=== PATIENT | female | born 1995 | race African-American/Black ===

== ENCOUNTER 2024-09-09 14:23 | Emergency (ER) | payer MEDICAID ==
[~2024-09-09] VITALS: Ht 144.8 cm; Wt 39.4 kg
[2024-09-09 15:14] VITALS: BP 129/77; PULSE 115; RESP 19; O2SAT 100
[2024-09-09] MEDS ORDERED: AUG875T PO (16:51)
[2024-09-09] MEDS ORDERED: BENZ100C97 PO (16:51)
[2024-09-09] MEDS ORDERED: ONDA-155 PO (16:51)
[2024-09-09] MEDS ORDERED: METH-1181 PO (16:51)
--- NOTE | 2024-09-09 16:51 | ED.PDOC ---
SOB-HPI HPI Comments 29 year old F presents for URI symptoms x 4 days C/o nasal congestion, chills, intermittent nausea LMP: 09/04/2023 Denies fevers chills night sweats unintentional weight loss Denies persistent chest pain, shortness of breath, leg swelling Denies history of asthma nor any breathing conditions Denies history of pneumonia Denies recent international travel Chief Complaint: Flu like Time Seen by MD: 15:19 Primary Care Provider: tae Reviewed notes: Nurses Notes, Medications, Allergies Information Source: Patient Mode of Arrival: Ambulatory Social History Smoker: Non-Smoker Alcohol: Denies ETOH Use Drugs: Denies Drug Use All Other Systems: Reviewed and Negative (per hpi) Physical Exam General Appearance: No Apparent Distress, Normal HEENT: Normal ENT Inspection, Pharynx Normal, TMs Normal Neck: Full Range of Motion, Non-Tender, Normal, Normal Inspection Respiratory: Chest Non-Tender, Lungs Clear, No Accessory Muscle Use, No Respiratory Distress, Normal Breath Sounds Cardiovascular: No Edema, No JVD, No Murmur, No Gallop, Normal Peripheral Pulses, Regular Rate/Rhythm Breast Exam: Deferred Gastrointestinal: No Organomegaly, Non Tender, No Pulsatile Mass, Normal Bowel Sounds, Soft Genitalia: Deferred Pelvic: Deferred Rectal: Deferred Extremities: No calf tenderness, Normal capillary refill, Normal inspection, Normal range of motion, Non-tender, No pedal edema Musculoskeletal : Apperance: Normal Neurologic: Alert, No Motor Deficits, Normal Affect, Normal Mood, No Sensory Deficits Cerebellar Function: Normal Reflexes: Normal Skin: Dry, Normal Color, Warm Lymphatic: No Adenopathy Was a procedure done? Was a procedure done?: No Differential Dx Differential Diagnosis: Bronchitis, URI X-Ray, Labs, Meds, VS Vital Signs Date Time Temp Pulse Resp B/P (MAP) Pulse Ox O2 Delivery O2 Flow Rate FiO2 09/09/24 15:14 99.2 115 19 129/77 (94) 100 X-Ray, Labs, Meds, VS Comment On presentation, the patient is afebrile and has stable vital signs. The patient is overall well-appearing nontoxic on exam. On physical exam, respirations even and unlabored, clear to auscultation bilaterally. Oxygen stable on room air. Did not have any focal lung findings and therefore chest x-ray was not indicated during this exam Low suspicion of strep pharyngitis given physical exam findings and patient's presenting symptoms No signs of meningismus on exam Overall, the patient is well hydrated and nontoxic. Plan for symptomatic control for fever and pain as needed. The patient was able to tolerate p.o. intake in the ED. at this time, patient is safe for discharge home. The exam findings and plan discussed. We will discharge home with PCP follow up and strict return precautions. Discussed that cough can linger up to 6 weeks after viral URI Supportive care and return precautions discussed Counseled viral infection and explained that antibiotics would not be helpful in resolving the illness sooner. Recommended vitamin C, rest, handwashing, and symptomatic care. Expect 2-week course with possibly of cough lingering up to 6 weeks. Nonpharmacological remedies for fluids has been recommended as well Time of 1ST Reevaluation: 16:19 Reevaluation 1ST: Improved Patient Education/Counseling: Diagnosis, Treatment Family Education/Counseling: Diagnosis, Treatment Departure 1 Departure Time of Disposition: 16:47 Impression: Primary Impression: Viral syndrome Additional Impressions: Muscle spasm Nausea Disposition: HOME / SELF CARE / HOMELESS Condition: Stable e-Prescriptions Amoxicillin & Pot Clavulanate (AUGMENTIN TABLET) 875 Mg Tb 875 MG PO BID for 7 Days, #14 TAB 0 Refills Prov: JANELL PRIETO NP 09/09/24 Methocarbamol (Methocarbamol) 500 Mg Tab 500 MG PO Q8HP PRN for 10 Days, #30 TAB 0 Refills Prov: JANELL PRIETO NP 09/09/24 Ondansetron HCl (Ondansetron) 4 Mg Tab 4 MG PO Q8HP PRN for 2 Days, #6 TAB 0 Refills Prov: JANELL PRIETO NP 09/09/24 Benzonatate (Benzonatate) 100 Mg Cap 1 CAP PO TID for 10 Days, #30 CAP 0 Refills Prov: JANELL PRIETO NP 09/09/24 Critical Care Note Critical Care Time?: No Stability Stability form required: No Heart Score Heart Score: Heart Score Response (Comments) Value History N/A 0 EKG N/A 0 Age N/A 0 Risk Factors N/A 0 Troponin N/A 0 Total 0 JANELL PRIETO NP Sep 09, 2024 16:51
== END 2024-09-09 16:56 | disposition home or self-care (01) ==
LOC: ER 14:23
DX: B34.9 Viral infection, unspecified (principal); M62.838 Other muscle spasm; R11.0 Nausea

== ENCOUNTER 2025-07-11 19:04 | Inpatient (IN) | payer MEDICAID ==
[~2025-07-11] VITALS: Ht 30.5 cm; Wt 41.8 kg
[~2025-07-11 19:04] MED LIST: AUG875T PO; BENZ100C97 PO; METH-1181 PO; ONDA-155 PO
--- NOTE | 2025-07-11 19:15 | ECG ---
[facility] Test Date: 2025-07-11 Test Time: 19:13:33 Pat Name: JANAE MYLES Department: Room: [address] [place] [address] Gender: F Audio Operator: RODRÍGUEZ : 1995 Requested By: RHONDA CANTOR Order Number: [id number] Reading MD: Bill Hardy Measurements Intervals [place] Rate: 70 P: 11 RI: 149 QRS: 40 QRSD: 95 T: 49 QT: 392 QTc: 423 Interpretive Statements Sinus rhythm RSR' in V1 or V2, probably normal variant ST elevation suggests acute pericarditis Electronically Signed On 07-16-2025 17:44:38 PST by Bill Hardy Please click the below link to view image of tracing.
[2025-07-11 19:30] LABS: Hematocrit 30.8 % (36.0-46.0); Hemoglobin 9.9 g/dL (12.2-16.2); Mean Corpuscular Hemoglobin 23.7 pg (28.0-32.0); Mean Corpuscular Volume 73.8 fL (80.0-100.0); Nucleated Red Blood Cells % 0.0 %
[2025-07-11 19:42] LABS: Chloride 106 mmol/L (98-107); Sodium 138 mmol/L (136-145)
[2025-07-11 19:43] LABS: Anion Gap 5 (5-15); Carbon Dioxide 27 mmol/L (20-31)
[2025-07-11 19:44] LABS: Calcium 9.0 mg/dL (8.7-10.4); Potassium 3.3 mmol/L (3.5-5.1)
[2025-07-11 19:49] LABS: BUN/Creatinine Ratio 10.2 (10.0-20.0); Glucose 83 mg/dL (74-106)
[2025-07-11 19:50] LABS: Blood Urea Nitrogen 6 mg/dL (9-23)
--- NOTE | 2025-07-11 21:19 | ED.PDOC ---
HPI Comments 30-year-old female who came to ER for chest pains. Patient denies any medical problems. States for the past 3 days she has been having intermittent episodes sternal chest pains, pressure, radiating to her left lower rib cage. Denies any shortness of breath nausea or vomiting. The pressure with a arrival was 116/72 mm Hg Chief Complaint: Chest Pain Time Seen by MD: 20:15 Primary Care Provider: tae Allergies: Coded Allergies: NO KNOWN ALLERGIES (Unverified , 09/09/24) Home Meds Active Scripts Amoxicillin & Pot Clavulanate (AUGMENTIN TABLET) 875 Mg Tb, 875 MG PO BID for 7 Days, #14 TAB 0 Refills Prov:JANELL PRIETO BRAIDED BAND ASSEMBLER 09/09/24 Methocarbamol (Methocarbamol) 500 Mg Tab, 500 MG PO Q8HP PRN for 10 Days, #30 TAB 0 Refills Prov:JANELL PRIETO BRAIDED BAND ASSEMBLER 09/09/24 Ondansetron HCl (Ondansetron) 4 Mg Tab, 4 MG PO Q8HP PRN for 2 Days, #6 TAB 0 Refills Prov:JANELL PRIETO BRAIDED BAND ASSEMBLER 09/09/24 Benzonatate (Benzonatate) 100 Mg Cap, 1 CAP PO TID for 10 Days, #30 CAP 0 Refills Prov:JANELL PRIETO BRAIDED BAND ASSEMBLER 09/09/24 Mode of Arrival: Ambulatory Past Medical History PAST MEDICAL HISTORY: Denies Surgical History: Denies all surgeries ACID FILLER History: Denies all ACID FILLER Hx Family History Family History: Reviewed,noncontributory to illness Social History Smoker: Non-Smoker Alcohol: Denies ETOH Use Drugs: Denies Drug Use Lives In: Home Constitutional: denies: chills, diaphoresis, fatigue, fever, malaise, sweats, weakness, others EENTM: denies: blurred vision, double vision, ear bleeding, ear discharge, ear drainage, ear pain, ear ringing, eye pain, eye redness, hearing loss, mouth pain, mouth swelling, nasal discharge, nose bleeding, nose congestion, nose pain, photophobia, tearing, throat pain, throat swelling, voice changes, others Respiratory: denies: cough, hemoptysis, orthopnea, SOB at rest, shortness of breath, SOB with excertion, stridor, wheezing, others Cardiovascular: reports: chest pain; denies: dizzy spells, diaphoresis, Dyspnea on exertion, edema, irregular heart beat, left arm pain, lightheadedness, palp itations, PND, syncope, others Gastrointestinal: denies: abdomen distended, abdominal pain, blood streaked bowels, constipated, diarrhea, dysphagia, difficulty swallowing, hematemesis, melena, nausea, poor appetite, poor fluid intake, rectal bleeding, rectal pain, vomiting, others Genitourinary: denies: abnormal vagina bleeding, burning, dyspareunia, dysuria, flank pain, frequency, hematuria, incontinence, pain, , vagina discharge, urgency, others Neurological: denies: dizziness, fainting, headache, left sided numbness, left sided weakness, numbness, paresthesia, pre-existing deficit, right sided numbness, right sided weakness, seizure, speech problems, tingling, tremors, weakness, others Musculoskeletal: denies: back pain, gout, joint pain, joint swelling, muscle pain, muscle stiffness, neck pain, others Integumetry: denies: bruises, change in color, change in hair/nails, dryness, laceration, lesions, lumps, rash, wounds, others Allergic/Immunocompromised: denies: Difficulty Healing, Frequent Infections, Hives, Itching, others Hematologic/Lymphatic: denies: anemia, blood clots, easy bleeding, easy br uising, swollen glands, others Endocrine: denies: excessive hunger, excessive sweating, excessive thirst, excessive urination, flushing, intolerance to cold, intolerance to heat, unexplained weight gain, unexplained weight loss, others Psychiatric: denies: anxiety, bipolar disorder, depression, hopeless, panic disorder, schizophrenia, sleepless, suicidal, others Physical Exam General Appearance: No Apparent Distress, Normal HEENT: Normal ENT Inspection, Pharynx Normal, TMs Normal Neck: Full Range of Motion, Non-Tender, Normal, Normal Inspection Respiratory: Chest Non-Tender, Lungs Clear, No Accessory Muscle Use, No R espiratory Distress, Normal Breath Sounds Cardiovascular: No Edema, No JVD, No Murmur, No Gallop, Normal Peripheral Pulses, Regular Rate/Rhythm Breast Exam: Deferred Gastrointestinal: No Organomegaly, Non Tender, No Pulsatile Mass, Normal Bowel Sounds, Soft Genitalia: Deferred Pelvic: Deferred Rectal: Deferred Extremities: No calf tenderness, Normal capillary refill, Normal inspection, Normal range of motion, Non-tender, No pedal edema Musculoskeletal : Apperance: Normal Neurologic: Alert, part time flexible clerk II-XII nml as Tested, No Motor Deficits, Normal Affect, Normal Mood, No Sensory Deficits Cerebellar Function: Normal Reflexes: Normal Skin: Dry, Normal Color, Warm Lymphatic: No Adenopathy EKG EKG : Pulse Rate (adult): 72 Cardiac Rhythm: NSR Comments ST elevation the consider acute pericarditis Was a procedure done? Was a procedure done?: No CP Differential Dx Differential Diagnosis: A-fib, A-Flutter, Electrolyte Disorder, Heart Failure, MAT, [place], Pulmonary Embolus, Renal Failure, V-Fib, V-Tach, Other Differential Diagnosis: Angina, Chest Wall Pain, Costochondritis, Esophageal reflux/spasm, Gastritis, Myocardial Infarction X-Ray, Labs, Meds, VS Vital Signs Date Time Temp Pulse Resp B/P (MAP) Pulse Ox O2 Delivery O2 Flow Rate FiO2 07/11/25 21:19 72 07/11/25 20:11 69 07/11/25 19:13 70 07/11/25 19:10 98.1 72 18 116/72 99 98.1 Lab Test 07/11/25 20:28 07/11/25 19:18 Range/Units Troponin I High Sensitivity < 3 L < 3 L </=34 ng/L White Blood Count 8.0 4.4-10.8 10^3/uL Red Blood Count 4.18 4.0-5.20 10^6/uL Hemoglobin 9.9 L 12.2-16.2 g/dL Hematocrit 30.8 L 36.0-46.0 % Mean Corpuscular Volume 73.8 L 80.0-100.0 fL Mean Corpuscular Hemoglobin 23.7 L 28.0-32.0 pg Mean Corpuscular Hemoglobin Concent 32.1 32.0-36.0 g/dL Red Cell Distribution Width 15.4 H 11.8-14.3 % Platelet Count 261 140-450 10^3/uL Mean Platelet Volume 6.5 L 6.9-10.8 fL Neutrophils (%) (Auto) 69.8 37.0-80.0 % Lymphocytes (%) (Auto) 20.7 10.0-50.0 % Monocytes (%) (Auto) 8.0 0.0-12.0 % Eosinophils (%) (Auto) 1.3 0.0-7.0 % Basophils (%) (Auto) 0.2 0.0-2.0 % Neutrophils # (Auto) 5.6 1.6-8.6 10 ^3/uL Lymphocytes # (Auto) 1.7 0.4-5.4 10 ^3/uL Monocytes # (Auto) 0.6 0-1.3 10 ^3/uL Eosinophils # (Auto) 0.1 0-0.8 10 ^3/uL Basophils # (Auto) 0 0-0.2 10 ^3/uL Nucleated Red Blood Cells 0.0 % Sodium Level 138 136-145 mmol/L Potassium Level 3.3 L 3.5-5.1 mmol/L Chloride Level 106 98-107 mmol/L Carbon Dioxide Level 27 20-31 mmol/L Anion Gap 5 5-15 Blood Urea Nitrogen 6 L 9-23 mg/dL Creatinine 0.59 0.550-1.02 mg/dL Glomerular Filtration Rate Calc 124 >90 mL/min BUN/Creatinine Ratio 10.2 10.0-20.0 Serum Glucose 83 74-106 mg/dL Calcium Level 9.0 8.7-10.4 mg/dL Time of 1ST Reevaluation: 21:16 Reevaluation 1ST: Unchanged Patient Education/Counseling: Diagnosis, Treatment Family Education/Counseling: No Family Present SEPSIS Sepsis Screen Date sepsis recognized/suspect: Jul 11, 2025 Time Sepsis recognized/suspect: 1910 Recent Procedure: No On Antibiotic Therapy: No Respiratory Rate >20: No Heart Rate >90: No Temp<36 C (96.8 F) or >38.3 C: No SBP <90 or MAP <65 mmHG: No New Acute Mental Status Change: No Is the patient on CPAP, BIPAP,: No Physician Orders Electrocardigram (07/11/25 20:09) Electrocardigram (07/11/25 22:09) Urinalysis (07/11/25 20:15) Test, Urine (07/11/25 20:15) Chest Xray 1 View (07/11/25 21:40) Vital Signs Date Time Temp Pulse Resp B/P (MAP) Pulse Ox O2 Delivery O2 Flow Rate FiO2 07/11/25 21:19 72 07/11/25 20:11 69 07/11/25 19:13 70 07/11/25 19:10 98.1 72 18 116/72 99 98.1 Laboratory Tests Test 07/11/25 19:18 White Blood Count 8.0 10^3/uL (4.4-10.8) Departure 1 Departure Time of Disposition: 21:41 Impression: Primary Impression: Chest pain Additional Impression: Acute coronary syndrome Disposition: ADMITTED INPATIENT Admit to: Tele Condition: Guarded Comments Young 30-year-old female with suspicious chest pain. Her EKG shows some ST and elevation inferiorly and laterally that may represent J-point elevation. It was reviewed by economic specialist Dr. Hazel who recommends medical workup and does not think the patient needs ago to the labor relations supervisor immediately. Initial troponin is normal. Patient given aspirin. Patient will need to be admitted for supportive care and further workup Critical Care Note Critical Care Time?: Yes (35 min-critical care time only) Critical care comment: Total critical care time: Approximately 36 minutes Due to a high probability of clinically significant, life threatening deterioration, the patient required my highest level of preparedness to intervene emergently and I personally spent this critical care time directly and personally managing the patient. This critical care time included obtaining a history; examining the patient; pulse oximetry; ordering and review of studies; arranging urgent treatment with development of a management plan; evaluation of patient's response to treatment; frequent reassessment; and, discussions with other providers. This critical care time was performed to assess and manage the high probability of imminent, life-threatening deterioration that could result in multi-organ failure. It was exclusive of separately billable procedures and treating other patients. Stability Stability form required: No Heart Score Heart Score: Heart Score Response (Comments) Value History Highly Suspicious [address]-Deviation 2 Age <45 0 Risk Factors No known risk factors 0 Troponin Normal limit 0 Total 4 I personally scribed for RHONDA CANTOR MD ([email or web address]) on 07/11/25 at 21:19. Electronically submitted by Jeremias Rodarte ([email or web address]). RHONDA CANTOR MD Jul 11, 2025 21:19
[2025-07-11] MEDS: ONDANSETRON HCL 4 MG/2 ML VIAL IV ONE (21:50)
[2025-07-11] MEDS: MORPHINE SULFATE 4 MG/ML SYR/VIAL IV ONE (21:50)
[2025-07-12] VITALS (7 sets, daily range): BP systolic 102–120; BP diastolic 34–68; PULSE 58–75; RESP 12–18; TEMP 98–98.3; O2SAT 99–100
--- NOTE | 2025-07-12 00:55 | DVH ---
CHEST RADIOGRAPH INDICATION: chest pain TECHNIQUE: Single frontal view of the chest was obtained COMPARISON: None FINDINGS/IMPRESSION: The lungs are clear. The cardiomediastinal silhouette is unremarkable. No pleural effusion or pneumothorax. Incompletely assessed thoracolumbar fusion hardware.
[2025-07-12] MEDS ORDERED: ONDANSETRON HCL 4 MG/2 ML VIAL IV PRN (02:30)
[2025-07-12] MEDS ORDERED: NITROGLYCERIN 0.4 MG SL TAB SL PRN (02:30)
[2025-07-12] MEDS ORDERED: MORPHINE SULFATE INJ 2 MG/ml SYRG IV PRN (02:30)
[2025-07-12 03:47] LABS: Albumin 4.8 g/dL (3.2-4.8); Alkaline Phosphatase 60 U/L (46-116); Bilirubin, Direct 0.2 mg/dL (<0.3); Bilirubin, Total 0.5 mg/dL (0.2-1.0); Total Protein 7.5 g/dL (5.7-8.2)
[2025-07-12 03:59] LABS: Alanine Aminotransferase < 9 U/L (7-40)
[2025-07-12 04:46] LABS: Urine Protein, UAD Negative (Negative)
[2025-07-12] MEDS: POTASSIUM CHL 20 Meq TABLET PO ONE (04:51)
[2025-07-12] MEDS: ATORVASTATIN 20 MG TAB PO ONE (04:52)
[2025-07-12] MEDS: PANTOPRAZOLE 40 MG/10 ML VIAL INJ IV ONE (04:52)
[2025-07-12] MEDS: IBUPROFEN 400 MG TAB PO PRN (08:14)
[2025-07-12 09:10] LABS: Potassium 3.9 mmol/L (3.5-5.1); Sodium 139 mmol/L (136-145)
[2025-07-12 09:11] LABS: Anion Gap 6 (5-15); Calcium 9.0 mg/dL (8.7-10.4); Carbon Dioxide 23 mmol/L (20-31); Chloride 110 mmol/L (98-107)
[2025-07-12 09:16] LABS: BUN/Creatinine Ratio 7.7 (10.0-20.0); Glucose 82 mg/dL (74-106); Triglycerides 68 mg/dL (< 150)
[2025-07-12 09:18] LABS: Blood Urea Nitrogen 5 mg/dL (9-23); Cholesterol 117 mg/dL (< 200); HDL Cholesterol 41 mg/dL (40-59)
--- NOTE | 2025-07-12 11:13 | DVHINCON2 ---
Date Seen: Jul 12, [address] Quevedo Reason for Consultation Chest pain History of Present Illness A 30-year-old female with a history of scoliosis s/p back surgery presents with chest pain for the past five days. Pain is described as sharp/pressure-like in the mid-chest, worsened by deep inspiration and laying on her side, and poor Karen relieved when sitting up. Symptoms are associated with mild dizziness and nausea. Initial 12 lead ECG in the ED demonstrated ST elevation in the inferior and lateral leads, reviewed by Cardiology (Dr. Hazel) who recommended medical workup. Serial troponins have remained negative, chest x-ray is normal, ESR and CRP are normal. Repeat EKG this morning again shows persistent ST elevation in multiple leads. Patient reports a similar episode three years ago that improved with pain medication. She admits to marijuana use, denies tobacco or alcohol use. Family history significant for breast cancer and asthma on her maternal side. Past Medical History As stated in HPI Past Surgical History Back surgery Family History As stated in HPI Social History As stated in HPI Allergies: Coded Allergies: NO KNOWN ALLERGIES (Unverified , 09/09/24) Home Meds Active Scripts Amoxicillin & Pot Clavulanate (AUGMENTIN TABLET) 875 Mg Tb, 875 MG PO BID for 7 Days, #14 TAB 0 Refills Prov:JANELL PRIETO NP 09/09/24 Methocarbamol (Methocarbamol) 500 Mg Tab, 500 MG PO Q8HP PRN for 10 Days, #30 TAB 0 Refills Prov:JANELL PRIETO NP 09/09/24 Ondansetron HCl (Ondansetron) 4 Mg Tab, 4 MG PO Q8HP PRN for 2 Days, #6 TAB 0 Refills Prov:JANELL PRIETO PHYSICAL METALLURGIST 09/09/24 Benzonatate (Benzonatate) 100 Mg Cap, 1 CAP PO TID for 10 Days, #30 CAP 0 Refills Prov:JANELL PRIETO NP 09/09/24 Current Medications Current Medications Medications (Trade) Dose Ordered Sig/Enrique Route PRN Reason Start Time Stop Time Status Last Admin Nitroglycerin (Ntrostat Sublingual) 0.4 mg Q5MINP PRN SL FOR CHEST PAIN 07/12/25 02:30 Morphine Sulfate 2 mg Q30M PRN IV FOR CHEST PAIN 07/12/25 02:30 Aspirin (Ecotrin Enteric Coated Tablet) 81 mg DAILY PO 07/12/25 10:00 Ondansetron HCl (Zofran) 4 mg Q6HPRN PRN IV NAUSEA / VOMITING 07/12/25 02:30 Atorvastatin Calcium (Lipitor) 80 mg HS PO 07/12/25 22:00 07/12/25 06:51 DC Pantoprazole Sodium (Protonix) 40 mg DAILY IV 07/13/25 10:00 Atorvastatin Calcium (Lipitor) 40 mg HS PO 07/12/25 22:00 Ibuprofen (Motrin Tablet) 400 mg Q6HP PRN PO MODERATE PAIN (4-6 PAIN SCALE) 07/12/25 06:45 07/12/25 08:14 Vital Signs Vital Signs Date Time Temp Pulse Resp B/P (MAP) Pulse Ox O2 Delivery O2 Flow Rate FiO2 07/12/25 08:00 Room Air* 0 21 07/12/25 05:22 69 16 99 07/12/25 05:22 98.1 114/56 (75) 98.1 Labs/Diagnostic Data Labs Test 07/12/25 08:00 07/12/25 00:00 07/11/25 20:28 07/11/25 19:18 Range/Units Sodium Level 139 136-145 mmol/L Potassium Level 3.9 3.5-5.1 mmol/L Chloride Level 110 H 98-107 mmol/L Carbon Dioxide Level 23 20-31 mmol/L Anion Gap 6 5-15 Blood Urea Nitrogen 5 L 9-23 mg/dL Creatinine 0.65 0.550-1.02 mg/dL Glomerular Filtration Rate Calc 121 >90 mL/min BUN/Creatinine Ratio 7.7 L 10.0-20.0 Serum Glucose 82 74-106 mg/dL Calcium Level 9.0 8.7-10.4 mg/dL Troponin I High Sensitivity < 3 L </=34 ng/L Triglycerides Level 68 < 150 mg/dL Cholesterol Level 117 < 200 mg/dL LDL Cholesterol 67 < 100 mg/dL HDL Cholesterol 41 40-59 mg/dL Urine Color Light-yellow Yellow Urine Clarity Turbid H Clear Urine pH 6.0 5.0-9.0 Urine Specific [place] 1.015 1.001-1.035 Urine Protein Negative Negative Urine Ketones 1+ H Negative Urine Blood 3+ H Negative /uL Urine Nitrite Negative Negative Urine Bilirubin Negative Negative Urine Urobilinogen Normal Negative mg/dL Urine Leukocyte Esterase Trace Negative /uL Urine RBC 3 0 - 4 /hpf Urine Microscopic WBC 2 0-5 /HPF Urine Squamous Epithelial Cells Few <5 /hpf Urine Renal Epithelial Cells Few None Seen /hpf Urine Bacteria None seen None Seen /hpf Urine Mucus Few None Seen Urine Glucose Normal Normal mg/dL Urine Test Negative Negative Total Bilirubin 0.5 0.2-1.0 mg/dL Direct Bilirubin 0.2 <0.3 mg/dL Aspartate Amino Transferase (AST) 11 L 13-40 U/L Alanine Aminotransferase (ALT) < 9 7-40 U/L Alkaline Phosphatase 60 46-116 U/L C-Reactive Protein High Sensitivity < 0.02 <1.0 mg/dL Total Protein 7.5 5.7-8.2 g/dL Albumin 4.8 3.2-4.8 g/dL Beta HCG, Quantitative 0.0 L 1.5-4.2 mIU/mL White Blood Count 8.0 4.4-10.8 10^3/uL Red Blood Count 4.18 4.0-5.20 10^6/uL Hemoglobin 9.9 L 12.2-16.2 g/dL Hematocrit 30.8 L 36.0-46.0 % Mean Corpuscular Volume 73.8 L 80.0-100.0 fL Mean Corpuscular Hemoglobin 23.7 L 28.0-32.0 pg Mean Corpuscular Hemoglobin Concent 32.1 32.0-36.0 g/dL Red Cell Distribution Width 15.4 H 11.8-14.3 % Platelet Count 261 140-450 10^3/uL Mean Platelet Volume 6.5 L 6.9-10.8 fL Neutrophils (%) (Auto) 69.8 37.0-80.0 % Lymphocytes (%) (Auto) 20.7 10.0-50.0 % Monocytes (%) (Auto) 8.0 0.0-12.0 % Eosinophils (%) (Auto) 1.3 0.0-7.0 % Basophils (%) (Auto) 0.2 0.0-2.0 % Neutrophils # (Auto) 5.6 1.6-8.6 10 ^3/uL Lymphocytes # (Auto) 1.7 0.4-5.4 10 ^3/uL Monocytes # (Auto) 0.6 0-1.3 10 ^3/uL Eosinophils # (Auto) 0.1 0-0.8 10 ^3/uL Basophils # (Auto) 0 0-0.2 10 ^3/uL Nucleated Red Blood Cells 0.0 % PROCEDURE(s): CXR1 - CHEST XRAY 1 VIEW REASON: chest pain ORDER NUMBER(s): [id number], ACCESSION NUMBER(s): [id number] CHEST RADIOGRAPH INDICATION: chest pain TECHNIQUE: Single frontal view of the chest was obtained COMPARISON: None FINDINGS/IMPRESSION: The lungs are clear. The cardiomediastinal silhouette is unremarkable. No pleural effusion or pneumothorax. Incompletely assessed thoracolumbar fusion hardware. Assessment Chest pain likely noncardiac, low probability ACS given age, negative biomarkers, and nonexertional nature and pain 12-lead EKG with ST-elevation on multiple leads and negative troponins Possible acute pericarditis versus early repolarization versus muscular pain versus myocarditis Active marijuana use History of scoliosis Plan/Recommendation (Dr. Hazel ): * Obtain echocardiogram to evaluate for effusion, wall motion abnormality, or structural heart disease * NSAIDs for pain control * Continue * Telemetry anterior clinically state repeat EKG if symptoms change or prior to discharge * Advised to avoid strenuous activity until symptoms improve * Marijuana cessation counseled If echo normal and symptoms improved with NSAIDs, likely noncardiac/musculoskeletal chest pain or benign repolarization. This medical document was created using an electronic medical record system with voice recognition software and computerized dictation system. Although this document has been carefully reviewed, there might still be some phonetic and typographical errors. Occasional wrong-word or ``sound-alike substitutions may have occurred due to the inherent limitations of voice recognition software. These areas are purely typographical due to imperfections of the software programs and do not reflect any compromise in the patient's medical care. Please read the chart carefully and recognize, using context, where these substitutions have occurred. Plan discussed with: Patient Plan discussed with: Patient, Other (RN) NYHA Physical activity limitations: NA Date of Service: Jul 12, 2025 Billing Provider: EVAN HAZEL MD Cardiology Common Codes: CONSULT ONLY Cardiology Consultation Codes: [id number] CONSULT <45MIN SUSAN MURILLO ALMOND HULLER Jul 12, 2025 11:13
[2025-07-12] MEDS: ASPirin-EC 81 mg tab PO SCH (11:15)
[2025-07-12] MEDS: HYDROmorphone HCL 2 MG/ML VL/or syr IV ONE (11:20)
[2025-07-12] MEDS: IBUPROFEN 800 MG TAB PO ONE (12:00)
--- NOTE | 2025-07-12 16:43 | DVHPN2 ---
Subjective Patient continues to have intermittent chest pain Reviewed: Care Plan, H&P, Labs, Medications Changes from previous H/P or p: No Changes General: Per HPI Objective Vitals Vital Signs Date Time Temp Pulse Resp B/P (MAP) Pulse Ox O2 Delivery O2 Flow Rate FiO2 07/12/25 11:20 75 17 102/34 07/12/25 08:00 Room Air* 0 21 07/12/25 05:22 99 07/12/25 05:22 98.1 98.1 General Appearance: Alert, Oriented X3, Cooperative, No acute distress HEENT: Atraumatic, PERRLA Lungs: Clear to auscultation, Normal air movement Cardiovascular: Normal S1, Normal S2 Abdomen: Normal bowel sounds, Soft, No tenderness, No hepatospenomegaly, No masses Genitourinary: No Apparent Abnormalities Musculoskeletal: Normal sensory function, Normal motor function Extremities: No clubbing, No cyanosis, No edema, Normal pulses, No tenderness/swelling Neuro: Normal gait, Normal speech Skin: Dry, Intact Psych/Mental Status: Mental status NL, Mood NL Medications Current Medications Medications Dose Ordered Sig/Enrique Route Start Time Stop Time Status Last Admin Dose Admin Nitroglycerin 0.4 mg Q5MINP PRN SL 07/12/25 02:30 Morphine Sulfate 2 mg Q30M PRN IV 07/12/25 02:30 Aspirin 81 mg DAILY PO 07/12/25 10:00 07/12/25 11:15 81 MG Ondansetron HCl 4 mg Q6HPRN PRN IV 07/12/25 02:30 Pantoprazole Sodium 40 mg DAILY IV 07/13/25 10:00 Atorvastatin Calcium 40 mg HS PO 07/12/25 22:00 Ibuprofen 400 mg Q6HP PRN PO 07/12/25 06:45 Hold 07/12/25 08:14 400 MG Ibuprofen 800 mg TID PO 07/12/25 22:00 Hydromorphone HCl 0.25 mg Q4HPRN PRN IV 07/12/25 15:30 Laboratory Results Laboratory Tests 07/11/25 19:18 07/12/25 08:00 Chemistry Test 07/11/25 19:18 07/11/25 20:28 07/12/25 08:00 Calcium Level 9.0 mg/dL (8.7-10.4) 9.0 mg/dL (8.7-10.4) Albumin 4.8 g/dL (3.2-4.8) Total Protein 7.5 g/dL (5.7-8.2) Lipid panel Test 07/12/25 08:00 Cholesterol Level 117 mg/dL (< 200) HDL Cholesterol 41 mg/dL (40-59) Triglycerides Level 68 mg/dL (< 150) LFT Test 07/11/25 20:28 Alanine Aminotransferase (ALT) < 9 U/L (7-40) Alkaline Phosphatase 60 U/L (46-116) Aspartate Amino Transferase (AST) 11 U/L (13-40) L Direct Bilirubin 0.2 mg/dL (<0.3) Total Bilirubin 0.5 mg/dL (0.2-1.0) Urinalysis Test 07/12/25 00:00 Urine Color Light-yellow (Yellow) Urine Clarity Turbid (Clear) H Urine pH 6.0 (5.0-9.0) Urine Specific [place] 1.015 (1.001-1.035) Urine Protein Negative (Negative) Urine Ketones 1+ (Negative) H Urine Blood 3+ /uL (Negative) H Urine Nitrite Negative (Negative) Urine Bilirubin Negative (Negative) Urine Urobilinogen Normal mg/dL (Negative) Urine Leukocyte Esterase Trace /uL (Negative) Urine RBC 3 /hpf (0 - 4) Urine Microscopic WBC 2 /HPF (0-5) Urine Squamous Epithelial Cells Few /hpf (<5) Urine Renal Epithelial Cells Few /hpf (None Seen) Urine Bacteria None seen /hpf (None Seen) Urine Mucus Few (None Seen) Urine Glucose Normal mg/dL (Normal) Urine Test Negative (Negative) Labs and/or images reviewed: Labs reviewed by me, Image(s) reviewed by me Assessment/Plan Assessment/Plan Impression: -chest pain, probable pericarditis -microcytic anemia Plan: -cardiology consultation: Recommendations reviewed -echocardiogram, pending -start ibuprofen 800 mg p.o. t.i.d. -reassess for discharge in a.m. after echocardiogram has been obtained. Total time spent with patient discussing and formulating plan of care: 35 minutes. This medical document was created using an electronic medical record system with [employer] system. Although this document has been carefully reviewed, there may still be some phonetic and typographical errors. These areas are purely typographical due to imperfections of the software programs, and do not reflect any compromise in the patient's medical care. Plan discussed with: Patient, Other (RN) My Orders Orders - ZOYA ACOSTA NP Procedure Category Date Status Time Consult Care CONS 07/12/25 Verified Coordinator Date of Service: Jul 12, 2025 Billing Provider: ZOYA ACOSTA NP Common Visit Codes: [id number] INP/OBS CARE(HIGH) ZOYA ACOSTA NP Jul 12, 2025 16:43
--- NOTE | 2025-07-12 16:44 | DVHSR ---
APPROVED REPORT EXAM: Two-dimensional and M-mode echocardiogram with Doppler and color Doppler. Blood Pressure: 114/56 mmHg INDICATION Chest pain, ?pericardial effusion RISK FACTORS Height: , Weight: 92 DIMENSIONS LVDd 3.4 (3.8-5.7cm) LA (2D) 3.5 (1.9-4.0cm) Aortic Root 2.8 (2.0-3.7cm) LVDs 2.2 (2.5-4.0cm) LA (MM) (1.9-4.0cm) Aortic Cusp Exc 1.9 (1.5-2.0cm) EF (%) 65.0 (55-70%) Rt. Atrium 3.6 (1.9-4.0cm) Asc. Aorta cm IVSd 0.8 (0.7-1.1cm) RV (D) 3.5 (1.8-2.4cm) PWd 0.8 (0.7-1.1cm) Mitral Valve Mitral Mitral Stenosis E wave 1.35m/s MV Mean GR. mmHg A wave 0.98m/s MV Peak GR. mmHg E/A ratio 1.4 2D MVA cm2 DECEL Time 268ms PRESS 1/2 Time ms Aortic Valve Aortic Valve Aortic Stenosis V1 1.02m/s AO Mean GR. 3mmHg V2 1.31m/s AO Peak GR. 7mmHg LVOT Diameter 1.7 (1.8-2.4cm) Doppler OMAR 1.77cm2 Pulmonic Valve V2 1.33m/s Tricuspid Valve TR Velocity 2.32m/s RVSP 24mmHg Other Information Technically limited study due to body habitus. 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
--- NOTE | 2025-07-12 18:11 | DVHHPRES ---
History of Present Illness Resident Creating Document: JAVIER MACE RESIDENT History of Present Illness A 30-year-old female with a history of scoliosis s/p back surgery presents with chest pain for the past five days. Pain is described as sharp/pressure-like in the mid-chest, worsened by deep inspiration and laying on her side, and poor Karen relieved when sitting up. Symptoms are associated with mild dizziness and nausea. Initial 12 lead ECG in the ED demonstrated ST elevation in the inferior and lateral leads, reviewed by Cardiology (Dr. Hazel) who recommended medical workup. Serial troponins have remained negative, chest x-ray is normal, ESR and CRP are normal. Repeat EKG this morning again shows persistent ST elevation in multiple leads. Patient reports a similar episode three years ago that improved with pain medication. She admits to marijuana use, denies tobacco or alcohol use. Family history significant for breast cancer and asthma on her maternal side. Review of Systems Review of Systems chest pain improved while in the hospital Allergies: Coded Allergies: NO KNOWN ALLERGIES (Unverified , 09/09/24) Medications Current Medications Medications Dose Ordered Sig/Enrique Route Start Time Stop Time Status Last Admin Dose Admin Nitroglycerin 0.4 mg Q5MINP PRN SL 07/12/25 02:30 Morphine Sulfate 2 mg Q30M PRN IV 07/12/25 02:30 Aspirin 81 mg DAILY PO 07/12/25 10:00 07/12/25 11:15 81 MG Ondansetron HCl 4 mg Q6HPRN PRN IV 07/12/25 02:30 Pantoprazole Sodium 40 mg DAILY IV 07/13/25 10:00 Atorvastatin Calcium 40 mg HS PO 07/12/25 22:00 Ibuprofen 400 mg Q6HP PRN PO 07/12/25 06:45 Hold 07/12/25 08:14 400 MG Ibuprofen 800 mg TID PO 07/12/25 22:00 Hydromorphone HCl 0.25 mg Q4HPRN PRN IV 07/12/25 15:30 Exam Vital Signs Vital Signs Date Time Temp Pulse Resp B/P (MAP) Pulse Ox O2 Delivery O2 Flow Rate FiO2 07/12/25 11:20 75 17 102/34 07/12/25 08:00 Room Air* 0 21 07/12/25 05:22 99 07/12/25 05:22 98.1 98.1 General Appearance: Alert, Oriented X3, Cooperative, No acute distress HEENT: Atraumatic, PERRLA Respiratory: Clear to auscultation, Normal air movement Cardiovascular: Regular rate, Normal S1, Normal S2, No murmurs Abdominal: Normal bowel sounds, Soft, No tenderness Extremities: No clubbing, No cyanosis, No edema, Normal pulses Neuro: Normal gait, Normal speech, Strength at 5/5 X4 ext, Normal tone, Sensation intact Labs/Xrays Labs Test 07/12/25 08:00 07/12/25 00:00 07/11/25 20:28 07/11/25 19:18 Range/Units Erythrocyte Sedimentation Rate 7 0-20 mm/hr Sodium Level 139 136-145 mmol/L Potassium Level 3.9 3.5-5.1 mmol/L Chloride Level 110 H 98-107 mmol/L Carbon Dioxide Level 23 20-31 mmol/L Anion Gap 6 5-15 Blood Urea Nitrogen 5 L 9-23 mg/dL Creatinine 0.65 0.550-1.02 mg/dL Glomerular Filtration Rate Calc 121 >90 mL/min BUN/Creatinine Ratio 7.7 L 10.0-20.0 Serum Glucose 82 74-106 mg/dL Calcium Level 9.0 8.7-10.4 mg/dL Troponin I High Sensitivity < 3 L </=34 ng/L Triglycerides Level 68 < 150 mg/dL Cholesterol Level 117 < 200 mg/dL LDL Cholesterol 67 < 100 mg/dL HDL Cholesterol 41 40-59 mg/dL Urine Color Light-yellow Yellow Urine Clarity Turbid H Clear Urine pH 6.0 5.0-9.0 Urine Specific [place] 1.015 1.001-1.035 Urine Protein Negative Negative Urine Ketones 1+ H Negative Urine Blood 3+ H Negative /uL Urine Nitrite Negative Negative Urine Bilirubin Negative Negative Urine Urobilinogen Normal Negative mg/dL Urine Leukocyte Esterase Trace Negative /uL Urine RBC 3 0 - 4 /hpf Urine Microscopic WBC 2 0-5 /HPF Urine Squamous Epithelial Cells Few <5 /hpf Urine Renal Epithelial Cells Few None Seen /hpf Urine Bacteria None seen None Seen /hpf Urine Mucus Few None Seen Urine Glucose Normal Normal mg/dL Urine Test Negative Negative Total Bilirubin 0.5 0.2-1.0 mg/dL Direct Bilirubin 0.2 <0.3 mg/dL Aspartate Amino Transferase (AST) 11 L 13-40 U/L Alanine Aminotransferase (ALT) < 9 7-40 U/L Alkaline Phosphatase 60 46-116 U/L C-Reactive Protein High Sensitivity < 0.02 <1.0 mg/dL Total Protein 7.5 5.7-8.2 g/dL Albumin 4.8 3.2-4.8 g/dL Beta HCG, Quantitative 0.0 L 1.5-4.2 mIU/mL White Blood Count 8.0 4.4-10.8 10^3/uL Red Blood Count 4.18 4.0-5.20 10^6/uL Hemoglobin 9.9 L 12.2-16.2 g/dL Hematocrit 30.8 L 36.0-46.0 % Mean Corpuscular Volume 73.8 L 80.0-100.0 fL Mean Corpuscular Hemoglobin 23.7 L 28.0-32.0 pg Mean Corpuscular Hemoglobin Concent 32.1 32.0-36.0 g/dL Red Cell Distribution Width 15.4 H 11.8-14.3 % Platelet Count 261 140-450 10^3/uL Mean Platelet Volume 6.5 L 6.9-10.8 fL Neutrophils (%) (Auto) 69.8 37.0-80.0 % Lymphocytes (%) (Auto) 20.7 10.0-50.0 % Monocytes (%) (Auto) 8.0 0.0-12.0 % Eosinophils (%) (Auto) 1.3 0.0-7.0 % Basophils (%) (Auto) 0.2 0.0-2.0 % Neutrophils # (Auto) 5.6 1.6-8.6 10 ^3/uL Lymphocytes # (Auto) 1.7 0.4-5.4 10 ^3/uL Monocytes # (Auto) 0.6 0-1.3 10 ^3/uL Eosinophils # (Auto) 0.1 0-0.8 10 ^3/uL Basophils # (Auto) 0 0-0.2 10 ^3/uL Nucleated Red Blood Cells 0.0 % SEPSIS Sepsis Screen Date sepsis recognized/suspect: Jul 12, 2025 Time Sepsis recognized/suspect: 035 Recent Procedure: No On Antibiotic Therapy: No Respiratory Rate >20: No Heart Rate >90: No Temp<36 C (96.8 F) or >38.3 C: No SBP <90 or MAP <65 mmHG: No New Acute Mental Status Change: No Is the patient on CPAP, BIPAP,: No Physician Orders Drug Screen (07/12/25 10:59) Electrocardigram (07/12/25 10:59) Ibuprofen Tablet (Motrin Tablet) (07/12/25 22:00) Hydromorphone Injection (Dilaudid Inject (07/12/25 15:30) Consult Echocardiograph Tech (07/12/25 ) Vital Signs Date Time Temp Pulse Resp B/P (MAP) Pulse Ox O2 Delivery O2 Flow Rate FiO2 07/12/25 11:20 75 17 102/34 Medications Medications Dose Ordered Sig/Enrique Route Start Time Stop Time Status Last Admin Dose Admin Aspirin 81 mg DAILY PO 07/12/25 10:00 07/12/25 11:15 81 MG Hydromorphone HCl 0.25 mg Q4HPRN ONCE IV 07/12/25 10:00 07/12/25 10:01 DC 07/12/25 11:20 0.25 MG Ibuprofen 400 mg Q6HP PRN PO 07/12/25 06:45 Hold 07/12/25 08:14 400 MG Assessment/Plan Assessment/Plan Acute Chest pain, low probability ACS given age, possible acute pericarditis 12-lead EKG with ST-elevation on multiple leads and negative troponins Possible acute pericarditis versus early repolarization versus muscular pain versus myocarditis Active marijuana use Microcytic hypochromic anemia History of scoliosis s/p back surgery Plan: echocardiogram pending to evaluate for effusion or structural heart disease NSAIDs for pain control Advised to avoid strenuous activity until symptoms improve Marijuana cessation counseled Goals of care discussed with the patient. Full code TIme spent: 33 mins Plan discussed with Dr Mason Plan discussed with: Patient My Orders Orders - JAVIER MACE RESIDENT Procedure Category Date Status Time Admit ADMIT 07/12/25 Transmitted 02:26 Nitroglycerin PHA 07/12/25 In Process Sublingual (Ntrostat 02:30 Morphine Sulfate PHA 07/12/25 In Process Injection 02:30 Oxygen By Nasal RT 07/12/25 Transmitted Cannula 02:26 Stat Ekg For Chest GIANCARLO 07/12/25 In Process Pain 02:26 Notify Of Changes GIANCARLO 07/12/25 In Process From Base 02:26 Mortar Man For GIANCARLO 07/12/25 In Process 24 Hours 02:26 Emergency Dysrhythmia GIANCARLO 07/12/25 In Process Protocol 02:26 Aspirin Enteric PHA 07/12/25 In Process Coated Tablet 10:00 Ondansetron Hcl PHA 07/12/25 In Process (Zofran) 02:30 Cardiac DIET 07/12/25 Transmitted Diet-2gna,Lofat,Lochol Breakfast Pantoprazole PHA 07/13/25 In Process (Protonix) 10:00 Education - Smoking GIANCARLO 07/12/25 In Process Cessation 06:40 * Smoking Cessation CONS 07/12/25 Transmitted Consult 06:40 Atorvastatin (Lipitor) PHA 07/12/25 In Process 22:00 Echo 2d Mode Cardiac US 07/12/25 Resulted DOP 06:44 Ibuprofen Tablet PHA 07/12/25 In Process (Motrin Tablet) 06:45 * Cardiology Consult CONS 07/12/25 Transmitted 08:22 Electrocardigram EKG 07/12/25 Logged 07:46 Hydromorphone PHA 07/12/25 In Process Injection (Dilaudid 15:30 Visit Coding STANDARD RES Billing Provider: ADEN MASON MD Date of Service if different f: Jul 12, 2025 Common Visit Codes: [id number] INP/OBS CARE (MOD) Secondary Visit Codes: [id number] CARE PLAN 30 MINUTES JAVIER MACE RESIDENT Jul 12, 2025 18:11
[2025-07-12] MEDS: HYDROmorphone HCL 2 MG/ML VL/or syr IV PRN (19:25)
--- NOTE | 2025-07-12 19:36 | DVHINCON2 ---
Date Seen: Jul 12, [address] Quevedo Reason for Consultation Chest pain History of Present Illness This is a 30-year-old female with a past medical history of scoliosis s/p back surgery presents with chest pain for the past five days. Patient also reports a family history significant for breast cancer and asthma on her maternal side. Pain is described as sharp/pressure-like in the mid-chest, worsened by deep inspiration and laying on her side, and pain is relieved when sitting up. Symptoms are associated with mild dizziness and nausea. Initial 12 lead ECG in the ED demonstrated ST elevation in the inferior and lateral leads which I reviewed and recommended further medical workup. Serial troponins have remained negative, chest x-ray is normal, ESR and CRP are normal. Repeat EKG this morning again shows persistent ST elevation in multiple leads. Patient reports a similar episode three years ago that improved with pain medication. She admits to marijuana use however denies tobacco or alcohol use. Patient was admitted to the hospital. I am asked to consult on this patient. Past Medical History As stated in HPI Past Surgical History Back surgery Allergies: Coded Allergies: NO KNOWN ALLERGIES (Unverified , 09/09/24) Home Meds Active Scripts Amoxicillin & Pot Clavulanate (AUGMENTIN TABLET) 875 Mg Tb, 875 MG PO BID for 7 Days, #14 TAB 0 Refills Prov:JANELL PRIETO [employer] OFFICER 09/09/24 Methocarbamol (Methocarbamol) 500 Mg Tab, 500 MG PO Q8HP PRN for 10 Days, #30 TAB 0 Refills Prov:JANELL PRIETO [employer]IC[employer] 09/09/24 Ondansetron HCl (Ondansetron) 4 Mg Tab, 4 MG PO Q8HP PRN for 2 Days, #6 TAB 0 Refills Prov:JANELL PRIETO NP 09/09/24 Benzonatate (Benzonatate) 100 Mg Cap, 1 CAP PO TID for 10 Days, #30 CAP 0 Refills Prov:JANELL PRIETO NP 09/09/24 Current Medications Current Medications Medications (Trade) Dose Ordered Sig/Enrique Route PRN Reason Start Time Stop Time Status Last Admin Nitroglycerin (Ntrostat Sublingual) 0.4 mg Q5MINP PRN SL FOR CHEST PAIN 07/12/25 02:30 Morphine Sulfate 2 mg Q30M PRN IV FOR CHEST PAIN 07/12/25 02:30 Aspirin (Ecotrin Enteric Coated Tablet) 81 mg DAILY PO 07/12/25 10:00 07/12/25 11:15 Ondansetron HCl (Zofran) 4 mg Q6HPRN PRN IV NAUSEA / VOMITING 07/12/25 02:30 Atorvastatin Calcium (Lipitor) 80 mg HS PO 07/12/25 22:00 07/12/25 06:51 DC Pantoprazole Sodium (Protonix) 40 mg DAILY IV 07/13/25 10:00 Atorvastatin Calcium (Lipitor) 40 mg HS PO 07/12/25 22:00 Ibuprofen (Motrin Tablet) 400 mg Q6HP PRN PO MODERATE PAIN (4-6 PAIN SCALE) 07/12/25 06:45 Hold 07/12/25 08:14 Ibuprofen (Motrin Tablet) 800 mg TID PO 07/12/25 22:00 Review of Systems Constitutional: denies: chills, diaphoresis, fatigue, fever, malaise, sweats, weakness, others EENTM: denies: blurred vision, double vision, ear bleeding, ear discharge, ear drainage, ear pain, ear ringing, eye pain, eye redness, hearing loss, mouth pain, mouth swelling, nasal discharge, nose bleeding, nose congestion, nose pain, photophobia, tearing, throat pain, throat swelling, voice changes, others Respiratory: denies: cough, hemoptysis, orthopnea, SOB at rest, shortness of breath, SOB with excertion, stridor, wheezing, others Cardiovascular: reports: chest pain; denies: dizzy spells, diaphoresis, Dyspnea on exertion, edema, irregular heart beat, left arm pain, lightheadedness, palpitations, PND, syncope, others Gastrointestinal: denies: abdomen distended, abdominal pain, blood streaked bowels, constipated, diarrhea, dysphagia, difficulty swallowing, hematemesis, melena, nausea, poor appetite, poor fluid intake, rectal bleeding, rectal pain, vomiting, others Genitourinary: denies: abnormal vagina bleeding, burning, dyspareunia, dysuria, flank pain, frequency, hematuria, incontinence, pain, , vagina discharge, urgency, others Neurological: denies: dizziness, fainting, headache, left sided numbness, left sided weakness, numbness, paresthesia, pre-existing deficit, right sided numbness, right sided weakness, seizure, speech problems, tingling, tremors, weakness, others Musculoskeletal: denies: back pain, gout, joint pain, joint swelling, muscle pain, muscle stiffness, neck pain, others Integumetry: denies: bruises, change in color, change in hair/nails, dryness, laceration, lesions, lumps, rash, wounds, others Allergic/Immunocompromised: denies: Difficulty Healing, Frequent Infections, Hives, Itching, others Hematologic/Lymphatic: denies: anemia, blood clots, easy bleeding, easy bruising, swollen glands, others Endocrine: denies: excessive hunger, excessive sweating, excessive thirst, excessive urination, flushing, intolerance to cold, intolerance to heat, unexplained weight gain, unexplained weight loss, others Psychiatric: denies: anxiety, bipolar disorder, depression, hopeless, panic disorder, schizophrenia, sleepless, suicidal, others Vital Signs Vital Signs Date Time Temp Pulse Resp B/P (MAP) Pulse Ox O2 Delivery O2 Flow Rate FiO2 07/12/25 11:20 75 17 102/34 07/12/25 08:00 Room Air* 0 21 07/12/25 05:22 99 07/12/25 05:22 98.1 98.1 Physical Exam GENERAL: Alert and oriented x 3. No acute distress. EYES: PERRL, EOMI. Anicteric. HENT: Moist mucous membranes. LUNGS: Clear to auscultation bilaterally. CARDIOVASCULAR: Regular rate and rhythm. ABDOMEN: Soft, nontender and nondistended. EXTREMITIES: No edema. NEUROLOGIC: No focal neurological deficits. SKIN: Warm, dry. Labs/Diagnostic Data Labs Test 07/12/25 08:00 07/12/25 00:00 07/11/25 20:28 07/11/25 19:18 Range/Units Erythrocyte Sedimentation Rate 7 0-20 mm/hr Sodium Level 139 136-145 mmol/L Potassium Level 3.9 3.5-5.1 mmol/L Chloride Level 110 H 98-107 mmol/L Carbon Dioxide Level 23 20-31 mmol/L Anion Gap 6 5-15 Blood Urea Nitrogen 5 L 9-23 mg/dL Creatinine 0.65 0.550-1.02 mg/dL Glomerular Filtration Rate Calc 121 >90 mL/min BUN/Creatinine Ratio 7.7 L 10.0-20.0 Serum Glucose 82 74-106 mg/dL Calcium Level 9.0 8.7-10.4 mg/dL Troponin I High Sensitivity < 3 L </=34 ng/L Triglycerides Level 68 < 150 mg/dL Cholesterol Level 117 < 200 mg/dL LDL Cholesterol 67 < 100 mg/dL HDL Cholesterol 41 40-59 mg/dL Urine Color Light-yellow Yellow Urine Clarity Turbid H Clear Urine pH 6.0 5.0-9.0 Urine Specific [place] 1.015 1.001-1.035 Urine Protein Negative Negative Urine Ketones 1+ H Negative Urine Blood 3+ H Negative /uL Urine Nitrite Negative Negative Urine Bilirubin Negative Negative Urine Urobilinogen Normal Negative mg/dL Urine Leukocyte Esterase Trace Negative /uL Urine RBC 3 0 - 4 /hpf Urine Microscopic WBC 2 0-5 /HPF Urine Squamous Epithelial Cells Few <5 /hpf Urine Renal Epithelial Cells Few None Seen /hpf Urine Bacteria None seen None Seen /hpf Urine Mucus Few None Seen Urine Glucose Normal Normal mg/dL Urine Test Negative Negative Total Bilirubin 0.5 0.2-1.0 mg/dL Direct Bilirubin 0.2 <0.3 mg/dL Aspartate Amino Transferase (AST) 11 L 13-40 U/L Alanine Aminotransferase (ALT) < 9 7-40 U/L Alkaline Phosphatase 60 46-116 U/L C-Reactive Protein High Sensitivity < 0.02 <1.0 mg/dL Total Protein 7.5 5.7-8.2 g/dL Albumin 4.8 3.2-4.8 g/dL Beta HCG, Quantitative 0.0 L 1.5-4.2 mIU/mL White Blood Count 8.0 4.4-10.8 10^3/uL Red Blood Count 4.18 4.0-5.20 10^6/uL Hemoglobin 9.9 L 12.2-16.2 g/dL Hematocrit 30.8 L 36.0-46.0 % Mean Corpuscular Volume 73.8 L 80.0-100.0 fL Mean Corpuscular Hemoglobin 23.7 L 28.0-32.0 pg Mean Corpuscular Hemoglobin Concent 32.1 32.0-36.0 g/dL Red Cell Distribution Width 15.4 H 11.8-14.3 % Platelet Count 261 140-450 10^3/uL Mean Platelet Volume 6.5 L 6.9-10.8 fL Neutrophils (%) (Auto) 69.8 37.0-80.0 % Lymphocytes (%) (Auto) 20.7 10.0-50.0 % Monocytes (%) (Auto) 8.0 0.0-12.0 % Eosinophils (%) (Auto) 1.3 0.0-7.0 % Basophils (%) (Auto) 0.2 0.0-2.0 % Neutrophils # (Auto) 5.6 1.6-8.6 10 ^3/uL Lymphocytes # (Auto) 1.7 0.4-5.4 10 ^3/uL Monocytes # (Auto) 0.6 0-1.3 10 ^3/uL Eosinophils # (Auto) 0.1 0-0.8 10 ^3/uL Basophils # (Auto) 0 0-0.2 10 ^3/uL Nucleated Red Blood Cells 0.0 % Assessment Chest pain likely noncardiac, low probability ACS given age, negative biomarkers, and nonexertional nature and pain. 12-lead EKG with ST-elevation on multiple leads and negative troponins. Possible acute pericarditis versus early repolarization versus muscular pain versus myocarditis. Active marijuana use. History of scoliosis. Plan/Recommendation I agree with your ongoing assessment and care of plan. Patient has been seen by Shanika Brooks NP on my behalf, we have discussed the plan with the patient. Obtain echocardiogram to evaluate for effusion, wall motion abnormality, or structural heart disease. NSAIDs for pain control. Telemetry anterior clinically state repeat EKG if symptoms change or prior to discharge. Advised to avoid strenuous activity until symptoms improve. Marijuana cessation counseled. If echo normal and symptoms improved with NSAIDs, likely noncardiac/musculoskeletal chest pain or benign repolarization. Additional plan as per the hospital course. Plan discussed with: Patient NYHA Physical activity limitations: NA Date of Service: Jul 12, 2025 Billing Provider: EVAN MORIN MD Cardiology Common Codes: [id number] INP/OBS CARE (High) Cardiology Consultation Codes: [id number] CONSULT <45MIN EVAN MORIN MD Jul 12, 2025 13:28
[2025-07-12] MEDS: IBUPROFEN 800 MG TAB PO SCH (21:04)
[2025-07-12] MEDS: ATORVASTATIN 20 MG TAB PO SCH (21:04)
[2025-07-12] MEDS ORDERED: ATORVASTATIN 20 MG TAB PO SCH (22:00)
[2025-07-12 22:11] LABS: Amphetamine Screen, Urine Neg (NEGATIVE); Barbiturate Scree,Urine Neg (NEGATIVE); Benzodiazephine Screen, Urine Neg (NEGATIVE); Cannabinoid Screen, Urine Pos (NEGATIVE); Cocaine Screen, Urine Neg (NEGATIVE); Opiate Scree,Urine Pos (NEGATIVE); Phencyclidine Screen, Urine Neg (NEGATIVE)
[2025-07-13 01:00] VITALS: BP 119/59; PULSE 62; RESP 14; TEMP 97.9; O2SAT 100
[2025-07-13 05:00] VITALS: BP 104/55; PULSE 74; RESP 16; TEMP 98.3; O2SAT 99
--- NOTE | 2025-07-13 07:39 | ECG ---
[facility] Test Date: 2025-07-11 Test Time: 20:11:16 Pat Name: JANAE MYLES Department: Room: [address] [place] [address] A Gender: F Critical Care Paramedic: ARIC : 1995 Requested By: RHONDA CANTOR Order Number: [id number] Reading MD: Bill Hardy Measurements Intervals [place] Rate: 69 P: 17 [place]: 155 QRS: 50 QRSD: 77 T: 49 QT: 393 QTc: 421 Interpretive Statements Sinus rhythm RSR' in V1 or V2, probably normal variant Borderline Q waves in inferior leads Inferior infarct, acute (LCx) ST elevation, consider anterolateral injury Electronically Signed On 07-16-2025 17:46:48 PST by Bill Hardy Please click the below link to view image of tracing.
[2025-07-13 08:00] VITALS: PULSE 68
[2025-07-13 09:00] VITALS: BP 106/61; PULSE 63; RESP 18; TEMP 98.2; O2SAT 100
[2025-07-13] MEDS ORDERED: ASPirin-EC 81 mg tab PO ONE (09:51)
[2025-07-13] MEDS ORDERED: PANTOPRAZOLE 40 MG/10 ML VIAL INJ IV ONE (09:52)
[2025-07-13] MEDS: PANTOPRAZOLE 40 MG/10 ML VIAL INJ IV SCH (09:56)
[2025-07-13] MEDS ORDERED: IBUP-1455 PO (11:21)
--- NOTE | 2025-07-13 11:40 | DVHDS2 ---
Discharge Summary Date of Admission Jul 12, 2025 at 02:26 Date of Discharge: Jul 13, 2025 Admitting Diagnosis Chest pain Labs/Diagnostic Data: Laboratory Results Test 07/12/25 08:00 07/12/25 00:00 07/11/25 20:28 07/11/25 19:18 Erythrocyte Sedimentation Rate 7 mm/hr (0-20) Sodium Level 139 mmol/L (136-145) Potassium Level 3.9 mmol/L (3.5-5.1) Chloride Level 110 mmol/L (98-107) Carbon Dioxide Level 23 mmol/L (20-31) Anion Gap 6 (5-15) Blood Urea Nitrogen 5 mg/dL (9-23) Creatinine 0.65 mg/dL (0.550-1.02) Glomerular Filtration Rate Calc 121 mL/min (>90) BUN/Creatinine Ratio 7.7 (10.0-20.0) Serum Glucose 82 mg/dL (74-106) Calcium Level 9.0 mg/dL (8.7-10.4) Troponin I High Sensitivity < 3 ng/L (</=34) Triglycerides Level 68 mg/dL (< 150) Cholesterol Level 117 mg/dL (< 200) LDL Cholesterol 67 mg/dL (< 100) HDL Cholesterol 41 mg/dL (40-59) Urine Color Light-yellow (Yellow) Urine Clarity Turbid (Clear) Urine pH 6.0 (5.0-9.0) Urine Specific [place] 1.015 (1.001-1.035) Urine Protein Negative (Negative) Urine Ketones 1+ (Negative) Urine Blood 3+ /uL (Negative) Urine Nitrite Negative (Negative) Urine Bilirubin Negative (Negative) Urine Urobilinogen Normal mg/dL (Negative) Urine Leukocyte Esterase Trace /uL (Negative) Urine RBC 3 /hpf (0 - 4) Urine Microscopic WBC 2 /HPF (0-5) Urine Squamous Epithelial Cells Few /hpf (<5) Urine Renal Epithelial Cells Few /hpf (None Seen) Urine Bacteria None seen /hpf (None Seen) Urine Mucus Few (None Seen) Urine Glucose Normal mg/dL (Normal) Urine Test Negative (Negative) Urine Opiates Screen Pos (NEGATIVE) Urine Fentanyl Screen Neg (NEGATIVE) Urine Barbiturates Screen Neg (NEGATIVE) Urine Phencyclidine Screen Neg (NEGATIVE) Urine Amphetamines Screen Neg (NEGATIVE) Urine Benzodiazepines Screen Neg (NEGATIVE) Urine Cocaine Screen Neg (NEGATIVE) Urine Cannabinoids Screen Pos (NEGATIVE) Total Bilirubin 0.5 mg/dL (0.2-1.0) Direct Bilirubin 0.2 mg/dL (<0.3) Aspartate Amino Transferase (AST) 11 U/L (13-40) Alanine Aminotransferase (ALT) < 9 U/L (7-40) Alkaline Phosphatase 60 U/L (46-116) C-Reactive Protein High Sensitivity < 0.02 mg/dL (<1.0) Total Protein 7.5 g/dL (5.7-8.2) Albumin 4.8 g/dL (3.2-4.8) Beta HCG, Quantitative 0.0 mIU/mL (1.5-4.2) White Blood Count 8.0 10^3/uL (4.4-10.8) Red Blood Count 4.18 10^6/uL (4.0-5.20) Hemoglobin 9.9 g/dL (12.2-16.2) Hematocrit 30.8 % (36.0-46.0) Mean Corpuscular Volume 73.8 fL (80.0-100.0) Mean Corpuscular Hemoglobin 23.7 pg (28.0-32.0) Mean Corpuscular Hemoglobin Concent 32.1 g/dL (32.0-36.0) Red Cell Distribution Width 15.4 % (11.8-14.3) Platelet Count 261 10^3/uL (140-450) Mean Platelet Volume 6.5 fL (6.9-10.8) Neutrophils (%) (Auto) 69.8 % (37.0-80.0) Lymphocytes (%) (Auto) 20.7 % (10.0-50.0) Monocytes (%) (Auto) 8.0 % (0.0-12.0) Eosinophils (%) (Auto) 1.3 % (0.0-7.0) Basophils (%) (Auto) 0.2 % (0.0-2.0) Neutrophils # (Auto) 5.6 10 ^3/uL (1.6-8.6) Lymphocytes # (Auto) 1.7 10 ^3/uL (0.4-5.4) Monocytes # (Auto) 0.6 10 ^3/uL (0-1.3) Eosinophils # (Auto) 0.1 10 ^3/uL (0-0.8) Basophils # (Auto) 0 10 ^3/uL (0-0.2) Nucleated Red Blood Cells 0.0 % Other Laboratory Tests 07/12/25 08:00 07/11/25 19:18 Brief Hx & Hospital Course: History of Present Illness A 30-year-old female with a history of scoliosis s/p back surgery presents with chest pain for the past five days. Pain is described as sharp/pressure-like in the mid-chest, worsened by deep inspiration and laying on her side, and poor Karen relieved when sitting up. Symptoms are associated with mild dizziness and nausea. Initial 12 lead ECG in the ED demonstrated ST elevation in the inferior and lateral leads, reviewed by Cardiology (Dr. Hazel) who recommended medical workup. Serial troponins have remained negative, chest x-ray is normal, ESR and CRP are normal. Repeat EKG this morning again shows persistent ST elevation in multiple leads. Patient reports a similar episode three years ago that improved with pain medication. She admits to marijuana use, denies tobacco or alcohol use. Family history significant for breast cancer and asthma on her maternal side. Course of hospitalization: Patient was seen by Cardiology. Patient was started on high dose ibuprofen for treatment of pericarditis. Echocardiogram was performed, essentially unremarkable. Patient was noted to have improvement with her chest discomfort. She is requesting anxiety medication as well as other types of pain medication at time of discharge. She is instructed to obtain a PCP and follow up with them for further treatment of anxiety disorder. She is instructed to decrease or abstain from marijuana use. She will be discharged home with ibuprofen 800 mg p.o. 3 times a day for two months. She has been instructed to follow up at this time with plastic sheets supervisor or PCP for further treatment if needed. Physical examination General: Alert and Oriented x3. No acute distress. Well-nourished. Eyes: EOMI. Anicteric. HENT: Moist mucous membranes. Lungs: Clear to auscultation bilaterally. No accessory muscle use. Cardiovascular: Regular rate and rhythm. No murmur. No JVD. Abdomen: Soft, non-tender and non-distended. No palpable masses. Extremities: No edema. Non-tender. Skin: No rashes or lesions. Warm. Neurologic: No focal neurological deficits. CN II-XII grossly intact, but not individually tested. Psychiatric: Cooperative. Appropriate mood and affect. Total time spent with patient discussing and formulating plan of care: 35 minutes. This medical document was created using an electronic medical record system with [employer] dictation system. Although this document has been carefully reviewed, there may still be some phonetic and typographical errors. These areas are purely typographical due to imperfections of the software programs, and do not reflect any compromise in the patient's medical care. Consults/Reason for consult Cardiology: Chest pain Condition at Discharge: Fair Final Diagnosis/Problems List Chest pain secondary to pericarditis Microcytic anemia Marijuana abuse Discharge Disposition: Home Discharge Instruct/Medications Diet: Regular Activity: No Restrictions, As Tolerated Follow Up/Referral: Follow up with discharge Clinic in one week Established PCP and follow up within 1-2 weeks Medications: Ibuprofen 800 mg p.o. t.i.d. for eight weeks Scheduled Amoxicillin & Pot Clavulanate (Augmentin Tablet), 875 MG PO BID Benzonatate (Benzonatate), 1 CAP PO TID Ibuprofen Micronized (Ibuprofen), 800 MG PO TID Scheduled PRN Methocarbamol (Methocarbamol), 500 MG PO Q8HP PRN Ondansetron HCl (Ondansetron), 4 MG PO Q8HP PRN 36 Discharge Statement: "Patient was advised to return to the ER or call 911 if any headaches, dizziness, shortness of breath, chest pain, abdominal pain, bleeding, fevers, or worsening of medical condition. Patient was counseled about treatment plan, medications, possible side effects, patientverbalized understanding. All questions were answered to the best of my ability. This discharge took greater then 30 minutes in planning, reviewing documentation, counseling the patient, and discussing with other team members." ASSESSMENT ASSESSMENT Assessment Chest pain secondary to pericarditis Date of Service: Jul 13, 2025 Billing Provider: ZOYA ACOSTA NP Common Visit Codes: 50939-OBH/OBS DISCH DAY >30min ZOYA ACOSTA NP Jul 13, 2025 11:40
[2025-07-13 12:30] VITALS: BP 106/61; PULSE 63; RESP 18; TEMP 98.2; O2SAT 100
--- NOTE | 2025-07-13 12:59 | ECG ---
[facility] Test Date: 2025-07-12 Test Time: 07:46:13 Pat Name: JANAE MYLES Department: Room: [address] [place] [address] Gender: F Parts Back Counter Man: : 1995 Requested By: SUSAN MURILLO Order Number: [id number] Reading MD: Bill Hardy Measurements Intervals [place] Rate: 67 P: 10 PA: 158 QRS: 15 QRSD: 94 T: 37 QT: 416 QTc: 439 Interpretive Statements Normal sinus rhythm Inferior infarct , age undetermined Electronically Signed On 07-16-2025 16:06:27 PST by Bill Hardy Please click the below link to view image of tracing.
--- NOTE | 2025-07-13 13:00 | ECG ---
[facility] Test Date: 2025-07-12 Test Time: 07:42:23 Pat Name: JANAE MYLES Department: Room: [address] [place] [address] Gender: F Student Support Counselor: : 1995 Requested By: JAVIER MACE Order Number: [id number] Reading MD: Bill Hardy Measurements Intervals [place] Rate: 78 P: 34 NH: 148 QRS: 26 QRSD: 82 T: 45 QT: 400 QTc: 456 Interpretive Statements Normal sinus rhythm Inferior infarct , age undetermined Electronically Signed On 07-16-2025 16:06:23 PST by Bill Hardy Please click the below link to view image of tracing.
--- NOTE | 2025-07-13 23:21 | DVHPN2 ---
Progress Note - Dictate Date Seen: Jul 13, 2025 Medical Necessity Reason Pt with a Central, PICC or Fol: No Subjective Patient was seen and evaluated in follow up. Echocardiogram shows LV EF of 70%. Patient has no complaints. Telemetry reviewed. vital signs Vital Sign Date Time Temp Pulse Resp B/P (MAP) Pulse Ox O2 Delivery O2 Flow Rate FiO2 07/13/25 12:30 98.2 63 18 100 07/13/25 09:00 106/61 (76) 07/13/25 08:00 Room Air* 0 21 Total Intake and Output 07/12/25 07/12/25 07/13/25 15:00 23:00 07:00 Intake Total 500 ml Balance 500 ml medications Current Medications Medications Dose Ordered Sig/Enrique Route Start Time Stop Time Status Last Admin Dose Admin Nitroglycerin 0.4 mg Q5MINP PRN SL 07/12/25 02:30 Morphine Sulfate 2 mg Q30M PRN IV 07/12/25 02:30 Aspirin 81 mg DAILY PO 07/12/25 10:00 07/13/25 09:57 81 MG Ondansetron HCl 4 mg Q6HPRN PRN IV 07/12/25 02:30 Pantoprazole Sodium 40 mg DAILY IV 07/13/25 10:00 07/13/25 09:56 40 MG Atorvastatin Calcium 40 mg HS PO 07/12/25 22:00 07/12/25 21:04 40 MG Ibuprofen 400 mg Q6HP PRN PO 07/12/25 06:45 07/12/25 08:14 400 MG Ibuprofen 800 mg TID PO 07/12/25 22:00 07/13/25 09:57 800 MG Hydromorphone HCl 0.25 mg Q4HPRN PRN IV 07/12/25 15:30 07/12/25 19:25 0.25 MG objective GENERAL: Alert and oriented x 3. No acute distress. EYES: PERRL, EOMI. Anicteric. HENT: Moist mucous membranes. LUNGS: Clear to auscultation bilaterally. CARDIOVASCULAR: Regular rate and rhythm. ABDOMEN: Soft, nontender and nondistended. EXTREMITIES: No edema. NEUROLOGIC: No focal neurological deficits. SKIN: Warm, dry. laboratory and microbiology Laboratory Tests 07/12/25 08:00 07/11/25 19:18 Test 07/12/25 08:00 Range/Units Serum Glucose 82 74-106 mg/dL Problem List Chest pain likely noncardiac, low probability ACS given age, negative biomarkers, and nonexertional nature and pain. 12-lead EKG with ST-elevation on multiple leads and negative troponins. Possible acute pericarditis versus early repolarization versus muscular pain versus myocarditis. Active marijuana use. History of scoliosis. Assessment/Plan Continued all current supportive medical care. Aspirin, Lipitor. Dilaudid and Avant for pain management. Nitro SL. GI prophylactics. Additional plan as per the hospital course. Plan discussed with: Patient EVAN MORIN MD Jul 13, 2025 23:21
--- NOTE | 2025-07-15 09:54 | ECG ---
[facility] Test Date: 2025-07-11 Test Time: 22:00:39 Pat Name: JANAE MYLES Department: ED Room: [address] [place] [address] A Gender: F Water Pollution Control Technician: mercy : 1995 Requested By: RHONDA CANTOR Order Number: [id number] Reading MD: Bill Hardy Measurements Intervals [place] Rate: 66 P: 2 MD: 154 QRS: 41 QRSD: 83 T: 43 QT: 423 QTc: 444 Interpretive Statements Sinus rhythm RSR' in V1 or V2, probably normal variant Borderline Q waves in lateral leads Inferior infarct, acute (LCx) ST elevation, consider anterolateral injury Electronically Signed On 07-16-2025 17:25:45 PST by Bill Hardy Please click the below link to view image of tracing.
== END 2025-07-13 14:00 | disposition home or self-care (01) | DRG 207 ==
LOC: ER 19:04 → OVERFLOW 07-12 02:26
PROVIDERS: ADMIT Nurse Practitioner Acute Care; ATTEND Nurse Practitioner Acute Care
DX: I31.9 Disease of pericardium, unspecified (principal); I24.9 Acute ischemic heart disease, unspecified; D50.9 Iron deficiency anemia, unspecified; F12.10 Cannabis abuse, uncomplicated; M41.9 Scoliosis, unspecified; Z79.2 Long term (current) use of antibiotics; Z79.899 Other long term (current) drug therapy; Z80.3 Family history of malignant neoplasm of breast; Z82.5 Family history of asthma and other chronic lower respiratory diseases
CPT/HCPCS: 36415; 71045; 80048; 80061; 80076; 80307; 81001; 81025; 84484; 84702; 85025; 85652; 86141; 93005; 93306; 96374; 96375; 99291; G0378; J2405; J2470